=== PATIENT | female | born 1960 ===

== ENCOUNTER 2018-05-31 08:00 | Day surgery (SDC) | payer BC ==
[2018-05-31] MEDS ORDERED: LIDOCAINE 1% MPF 2 ML AMPULE ONE (09:17)
[2018-05-31] MEDS ORDERED: PROPOFOL 200 MG/20 ML VIAL IV ONE (09:17)
--- NOTE | 2018-05-31 10:02 | ENDO RPT ---
[address], [address] COLONOSCOPY PROCEDURE REPORT EXAM DATE: 05/31/2018 PATIENT NAME: Betty Donnelly MR #: [id number] BIRTHDATE: 1960 ATTENDING: Nader Moy DR STATUS: outpatient CODING MACHINE OPERATOR: Rody Ferguson RN and Kali Andrade [facility] INDICATIONS: The patient is a 58 yr old Female here for a colonoscopy due to colon cancer screening PROCEDURE PERFORMED: Colonoscopy with biopsy MEDICATIONS: Per Anesthesia. ESTIMATED BLOOD LOSS: None CONSENT: The patient understands the risks and benefits of the procedure and understands that these risks include, but are not limited to: sedation, allergic reaction, infection, perforation and/or bleeding. Alternative means of evaluation and treatment include, among others: physical exam, x-rays, and/or surgical intervention. The patient elects to proceed with this endoscopic procedure. DESCRIPTION OF PROCEDURE: During intra-op preparation period all mechanical medical equipment was checked for proper function. Hand hygiene and appropriate measures for infection prevention was taken. Procedure, possible complications, alternatives including, but not limited to possibility of bleeding, perforation, tear, infection, sepsis, need for surgery, need for blood transfusion, were explained to the patient. After the risks, benefits and alternatives of the procedure were thoroughly explained, Informed consent was verified, confirmed and timeout was successfully executed by the treatment team. The patient was placed in the left lateral position. A digital rectal exam was performed and revealed internal hemorrhoids. After appropriate level of anesthesia, the scope was passed. The EC-[id number] ([id number]) endoscope was introduced through the anus and advanced to the cecum, which was identified by both the appendix and ileocecal valve. The quality of the prep was poor. The instrument was then slowly withdrawn as the colon was fully examined. Scope withdrawal time was 9 minutes. COLON FINDINGS: A circumferential diffuse patch of abnormal mucosa was found in the sigmoid colon. The mucosa was erythematous and had petechiae. A biopsy was performed using cold forceps. Small internal hemorrhoids were found. Retroflexed views revealed no abnormalities. The scope was then completely withdrawn from the patient and the procedure terminated. ADVERSE EVENTS: There were no complications. IMPRESSIONS: 1. Circumferential diffuse abnormal mucosa was found in the sigmoid colon; The mucosa was erythematous and had petechiae; biopsy was performed using cold forceps 2. Small internal hemorrhoids RECOMMENDATIONS: 1. fiber rich diet 2. await biopsy results 3. avoid NSAIDS for 2 weeks 4. follow-up: office 2 week(s) 5. yearly hemoccult starting in 4 years 6. hemorrhoidal hygiene RECALL: Return in 5 year(s) for Colonoscopy, pending biopsy results. Pending Biopsy Results Nader Moy DR eSigned: Nader Moy DR 05/31/2018 9:49 AM cc: CPT CODES: ICD9 CODES: PATIENT NAME: Betty Donnelly MR#: [id number]
== END 2018-05-31 10:27 | disposition home health service (06) ==
LOC: OR 08:00
PROVIDERS: ATTEND Surgery
PROC: 0DBN8ZX Excision of Sigmoid Colon, Via Natural or Artificial Opening Endoscopic, Diagnostic (ICD-10-PCS; principal; 2018-05-31 09:15)
DX: Z12.11 Encounter for screening for malignant neoplasm of colon (principal); K64.8 Other hemorrhoids; K64.4 Residual hemorrhoidal skin tags; K52.9 Noninfective gastroenteritis and colitis, unspecified; F98.8 Other specified behavioral and emotional disorders with onset usually occurring in childhood and adolescence
CPT/HCPCS: 88305; J2001